=== PATIENT | female | born 1995 | race African-American/Black ===

== ENCOUNTER 2025-02-20 15:49 | Emergency (ER) | payer OTHER, SELFPAY ==
--- NOTE | ~2025-02-20 | XR_ITS ---
XR wrist LT min 3V Ordering provider: Renato Love APRN History: . radial Lt wrist pain for 2 days, no injury . Comparison: None. FINDINGS: BONES: No acute fracture or dislocation. No definite scaphoid fracture. Lucency in the scaphoid is s een which may be a cyst. Follow-up advised. JOINT SPACES: Well maintained. SOFT TISSUES: Normal. IMPRESSION: No acute osseous abnormality left wrist. Possible cystic area in the scaphoid. Follow-up advised. Reviewed, dictated and finalized at location A.
[2025-02-20 16:05] VITALS: BP 140/91; PULSE 95; RESP 14; TEMP 36.9; O2SAT 100
--- NOTE | 2025-02-20 17:05 | ED.EXTPRO ---
HPI - Extremity Problem General Chief complaint: Extremity Problem,Nontraumatic Stated complaint: Left wrist issues Time Seen by Provider: 02/20/25 16:45 Source: patient and RN notes reviewed Mode of arrival: ambulatory Limitations: no limitations History of Present Illness HPI Narrative: 29-year-old female presents to [facility] complaining of left radial wrist pain. Patient denies any apparent injury. 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 Patient reports pain that shoots into her right thumb. Patient denies any swelling, or bruising, numbness or tingling. Patient is not taking anything [id number] to help with symptoms. Patient has used compression without relief. Related Data Home Medications ?Medication ?Instructions ?Recorded ?Confirmed ?Last Taken ?Type No Home Medications 02/20/25 02/20/25 Unknown History Allergies Allergy/AdvReac Type Severity Reaction Status Date / Time No Known Allergies Allergy Verified 02/20/25 16:08 Review of Systems Review of Systems: CONSTITUTIONAL: Denies fever, chills, or sweats. EYES: Denies visual changes, redness, or discharge. ENT: Denies rhinorrhea, congestion, sore throat, or otalgia. CARDIOVASCULAR: Denies chest pain, palpitations, or edema. RESPIRATORY: Denies cough or dyspnea. GASTROINTESTINAL: Denies abdominal pain, nausea, vomiting, or diarrhea. GENITOURINARY: Denies dysuria or hematuria. SKIN: Denies rash, wound, or itching. MUSCULOSKELETAL: Denies back pain, joint pain, or myalgia. Positive for left wrist pain. NEUROLOGIC: Denies headache, numbness, or weakness. PSYCHIATRIC: Denies anxiety or depression. All other systems reviewed are negative, except as documented in HPI. PMFSH Comments At the time of my signature, I reviewed and agree with the nursing past medical, surgical, social, and family history. There is no relevant family history pertinent to the patient complaint. Exam Narrative: GENERAL: This is a well-nourished, well-developed adult, in no apparent distress. They are non ill-appearing, nontoxic appearing. HEAD: normocephalic, atraumatic. EYES: Sclera clear/white. Vision is grossly intact. Conjunctiva normal. Extraocular movement intact. EARS: External ears normal Hearing grossly intact. NOSE: External nose normal THROAT: Mucous membranes moist NECK: Neck supple CARDIOVASCULAR: Regular rate and rhythm RESPIRATORY: Respiratory rate normal, respiratory effort nonlabored, no respiratory distress NEURO: awake, alert, and oriented to person, place and time. There were no obvious focal neurologic abnormalities. EXTREMITIES: Left wrist: No obvious deformity, injury, swelling, bruising, redness. No pain through full range of motion. Tenderness to palpation to the left lateral wrist near the distal part of the radius near the radial styloid. Positive Barbara test. Negative Tinel sign or Phalen sign. No snuffbox tenderness. Capillary refill less than 3 seconds. Left radial Pulse 2 +palpable. Normal sensation. Neurovascular status intact distal injury. Radial ulnar nerve distribution intact. Patient can make a fist, stop sign, thumbs-up sign, okay sign. BACK: Nontender without deformity. Course Course Emergency Course: Portions of this record may have been created with voice recognition software Level of Care: Express [facility] Visit Vital Signs Vital signs: Vital Signs Temperature 98.4 F 02/20/25 16:05 Pulse Rate 95 02/20/25 16:05 Respiratory Rate 14 02/20/25 16:05 Blood Pressure 140/91 H 02/20/25 16:05 Pulse Oximetry 100 02/20/25 16:05 Oxygen Delivery Room Air 02/20/25 16:05 Temperature 98.4 F 02/20/25 16:05 Pulse Rate 95 02/20/25 16:05 Respiratory Rate 14 02/20/25 16:05 Blood Pressure 140/91 H 02/20/25 16:05 Pulse Oximetry 100 02/20/25 16:05 Oxygen Delivery Room Air 02/20/25 16:05 Reviewed MDM - Extremity (Nontraumatic) MDM Narrative Medical decision making narrative: X-ray of wrist is negative of any fracture or acute findings. Incidental cystic lucency noted on x-ray near scaphoid. No palpable masses appreciated on exam. Advised patient to follow-up with PCP about finding. Patient likely has a tendinitis of her left wrist. Offered patient Cisco wrap, but she will purchase a thumb spica splint [id number] for comfort. Discussed physical exam findings. Advised supportive measures and signs/symptoms to go to the ER. Pt is appropriate for outpt treatment and f/u. Differential Diagnosis Differential diagnosis: Likely other (Arthritis, wrist tendinitis, de Quervain tendinopathy, wrist fracture, wrist sprain) Imaging Data Radiologist's impression: ITS Impressions Wrist X-Ray 02/20/25 16:33 IMPRESSION: No acute osseous abnormality left wrist. Possible cystic area in the scaphoid. Follow-up advised. Critical Care Time Critical Care Time Critical Care Time: No Discharge Plan Discharge Clinical Impression: Acute pain of left wrist Patient Disposition: Home Condition: Stable Instructions: Tendinitis (ED), Wrist Sprain (ED) Additional Instructions: Your x-ray of her left wrist is negative for any fracture or acute findings. Apply ice 15-20 minute intervals several times a day Keep your wrist wrapped with Cisco wrap or use a thumb spica splint as needed for comfort and compression. Take Motrin 600mg -800mg every 8 hours, alternate with Tylenol 1000mg every 8 hours as needed Follow up with your primary care provider or orthopedist as needed in and 1 week if pain persists. Patient Language: Malaysian Prescriptions: No Action No Home Medications Follow-up/Referrals: PHYSICIAN,TYPEWRITER MECHANIC [Primary Care Provider] - Kalia Parnell MD [Physician] - Stand Alone Forms: Work/School Release IP Time of Disposition: 17:00
== END 2025-02-20 17:05 | disposition home or self-care (01) ==
DX: M25.532 Pain in left wrist (principal)
CPT/HCPCS: 73110; 99203; G0463